=== PATIENT | female | born 2005 | race Two or more races ===

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

== ENCOUNTER 2025-01-16 14:52 | Outpatient (REF) | payer OTHER, SELFPAY ==
[2025-01-16 15:50] LABS: Cholesterol 217 mg/dL (<200); HDL Cholesterol 45 mg/dL (>40); LDL Cholesterol Calculated 153 mg/dL (<100); Triglycerides 95 mg/dL (<150)
--- OUTSIDE RECORDS SUMMARY | 2025-01-16 18:11 | XMS_ITS | Encounter Summary ---
Author Organization [facility] Address [address] [place] [address] Phone Care Team Providers Care Ranch Rider Name Role Phone Anita Rodriguez MD Primary Care Provider Encounter Details Date Type Department Care Team ([facility] st Contact Info) Description 02/27/2016 Documentation [facility] [place] Family Medicine [address] [place] [address] Family Medicine, Physician [address] [place], [place] [id number] Social History Tobacco Use Types Packs/Day Years Used Date Smoking Tobacco: Never Assessed Comments Unknown Sex and Gender Information Value Date Recorded Sex Assigned at Female 06/30/2020 1:52 PM EDT Legal Sex Female 5:13 PM EDT Gender Identity Female 06/30/2020 1:52 PM EDT Sexual Orientation Bisexual 04/19/2024 10 :40 AM EDT documented as of this encounter Plan of Treatment Not on file documented as of this encounter Visit Diagnoses Not on filedocumented in this encounter Care Teams Ranch Rider Relationship Specialty Start Date End Date Anita Rodriguez MD [address] [place] [id number] PCP - General Pediatrics 09/27/22 documented as of this encounter
--- OUTSIDE RECORDS SUMMARY | 2025-01-16 18:11 | XMS_ITS | Clinical Summary ---
Author Organization [facility] Address [address] [place] [address] Phone Care Team Providers Care Hog Pusher Name Role Phone Anita Rodriguez MD Primary Care Provider [phone] Allergies Active Allergy Reactions Criticality Noted Date Comments Food Itching 10/27/2022 [place] and plums Medications amLODIPine 10 MG tablet Take 10 mg by mouth daily. 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 Add Flonase. F/U 1 yr Moderate mixed hyperlipidemia not requiring stat in therapy 09/23/2021 Overview (07/25/2024): Has been seen by endo for this and for PCOS Labs 01/07/21 Chol - 234, Triglyceride - 97, HDL 49, LDL 166, Non HDL 185 10/27/2022 TC 176, HDL 47, non-HDL 129 05/25/2023 BP maintained on amlodipine. Elevated lipid levels (TC 219, LDL 165, TG 86, HDL 37). RTC 3 mo 11/06/2023 ECHO wnl. Rpt lipid elevated: TC 234, LDL 170, TG 105, HDL 43 07/24/2024 Cardiology - doing well on amlodipine 10 mg daily RTC 6 mo with rpt lipids Assessment & Plan (04/19/2024 10:44 AM EDT): 11/06/2023 ECHO wnl. Rpt lipid elevated: TC 234, LDL 170, TG 105, HDL 43 Repeat labs today with f/u with Cardiology on Monday Oral allergy syndrome 07/01/2021 Overview (04/11/2023): Gets itchy after eating peaches and plums and cherries. 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 Add Flonase. 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 Amlodipine was increased to 5 mg daily. Omron BP device requested for home. Dietary changes and 5 hours moderate exercise a week recommended. Recheck in 4 to 6 weeks 05/25/2023 BP maintained on amlodipine. Elevated lipid levels. Urine protein 1+ RTC 3 mo 11/06/2023 ECHO wnl. Rpt lipid elevated 11/22/2023 amlodipine increase to 10 mg/day and rpt lipid panel. F/u 03/11 canceled 07/24/2024 Cardiology - doing well on amlodipine 10 mg daily RTC 6 mo with rpt lipids Assessment & Plan (04/19/2024 10:25 AM EDT): 04/19/2024 Seen by Cardiology on 11/22/2023 for HTN and has follow up MondayApril 22. Going for repeat lipid panel, BUN, Cr, lytes today. Assessment & Plan (10/27/2022 1:52 PM EST): 10/27/2022 Seen by Cardiology on 11/09/21 for HTN and needs to follow up. (07/01/21 BUN,Cr,lytes wnl) Still needs a UA and lipids. Assessment & Plan (07/01/2021 5:46 PM EDT): High BP on initial check today and on recheck - 146/90 Wt 287 pounds Referred to cardio Assessment & Plan (06/30/2020 2:49 PM EDT): To follow up in 2-3 months for recheck. Discussed weight. Follow up with Endocrine as well PCOS (polycystic ovarian syndrome) 03/16/2018 Overview (04/08/2023): Followed by endo starting 03/2018 for PCOS (oligomenorrhea with hirsutism and elevated androgens). Was referred to nutrition. Ferritin and h/h normal 05/2019 On OCP = Seasonique 03/22/2023 Seen by Endocrine for follow up for PCOS, obesity, hyperlipidemia. Stopped OCPs 1 year ago. Menses Dec and January 2023. Prior to Dec 2022, no menses > 6 months. Normal Hgb A1C Oct 2022. Plan is to take Provera X 10 days if no menses for 3 months in a row. Follow up scheduled for 6 months. Assessment & Plan (10/27/2022 2:04 PM EST): 10/27/2022 BMI >99, PCOS dx 2018: last seen by Endocrine 02/27/2020. Saw Weight management in December 2019. referred back to Endo at last [facility], HgA1C 5.5 01/07/21. LMP 01/14/22. Not c/w OCPs. Needs to follow up. Assessment & Plan (07/01/2021 5:38 PM EDT): Followed by endocrine though has not seen them in a long time. Referred back to endocrine for help with OCP and to further discuss wt gain. Labs -Hgb A1C and metabolic panel ordered Assessment & Plan (05/31/2019 5:48 PM EDT): Has heavy menses that can last 5-8 days with 2-3 heavy days referred back to Endo for follow up for ? PCOS Assessment & Plan (03/16/2018 4:42 PM EDT): Menses started within this past year. Family not concerned. Will continue to follow. Obesity 04/20/2012 Overview (04/11/2023): Nutrition referral from Endo. 06/2021 - continues to gain weight. Pt is trying to be active and to eat better. Assessment & Plan (07/01/2021 1:35 PM EDT): Trying hard to lose weight and eat better. Pt has seen interrelated special education teacher Will check labs to look for Type 2 diabetes. Assessment & Plan (05/31/2019 3:36 PM EDT): Discussed increasing BMI and recommendation to get daily exercise and eat more fruits and veges. Assessment & Plan (03/16/2018 3:20 PM EDT): Labs ordered to r/o PCOS. Discussed healthy eating, increasing fruits and veges, whole grain foods, getting more exercise Resolved Problems Problem Noted Date Diagnosed Date Resolved Date Mood problem 09/24/2021 04/19/2024 Assessment & Plan (09/24/2021 9:20 PM EDT): At the end of this visit Catrachito requested that I write a letter to her landlord requesting that her do be considered an therapy animal. No previous hx of anxiety, or mood concerns I refused. Pt has no history of mentioning anxiety, she is not in therapy, dog is not specially trained as a therapy animal. To follow up for mood concerns if desired. Rosacea 09/23/2021 04/19/2024 Overview (09/23/2021): 07/10 - started on metronidazole cream Assessment & Plan (10/27/2022 1:54 PM EST): 10/27/2022 Rosacea: metronidazole cream - no change so referred to Derm on 09/23. Doing better on Azelaic acid. Has f/u scheduled for November. Assessment & Plan (09/24/2021 9:22 PM EDT): Feels the metronidazole has not helped. Referral done to dermatology. Encounters Date Type Department Care Team Description 12/12/2024 Telephone [facility] [place] [address] [place] [address] Anita Rodriguez MD letter from Last 3 Months Immunizations Immunization Administration Dates Next Due DTaP / Hep B / IPV 2005,2005, 005 DTaP 5 02/13/2009,08/04/2006 H1N1 11/24/2009,10/27/2009 HPV Vaccine 9 Valent 03/16/2018,02/16/2017 Hep A, ped/adol 08/15/2014,04/01/2011 Hib (HbOC) 2005,2005,2005 Hib (PRP-T) 04/07/2006 IPV 02/13/2009 Influenza Split 08/13/2012,09/20/2011,09/30/2010 Influenza, injectable, MDCK, preservative free, quadrivalent 10/03/2022 Influenza, injectable, quadrivalent 09/05/2016 Influenza, injectable, quadr ivalent, preservative free 09/23/2021,09/06/2020,07/30/2019,08/17,07/22/2015,08/15/2014 Influenza, injectable, trivalent 11/24/2009,07/21,2005 Influenza, intranasal, quadrivalent 08/01/2013 MMR 02/13/2009,01/06/2006 Meningococcal B Trumenba 07/11/2023,10/27/2022 Meningococcal Conj (Menactra) MCV4P 07/01/2021,0 02/16/2017 Pneumococcal Conjugate 04/07/2006,2004,2005,03/04 Tdap 02/16/2017 Varicella 02/13/2009,01/06/2006 Family History Medical History Relation Name Comments ADD / ADHD Brother Guru Asthma Father Jovani Hypertension Father Jovani Diabetes Maternal Grandmother Thyroid disease Maternal Grandmother Diabetes Mother Nelda Relation Name Status Comments Brother Guru Alive Brother: ADD/AD HD Father Jovani Alive Father: Asthma, High BP Maternal Grandfather Alive Materna l grandfather: Alive and well Maternal Grandmother Materna l grandmother: Diabetes mellitus Mother Nelda Alive Mother: Alive a nd well Paternal Grandfather Paterna l grandfather: Hypertension Paternal Grandmother Paterna l grandmother: Diabetes mellitus, Hypertension, Asthma Social History Tobacco Use Types Packs/Day Years Used Date Smoking Tobacco: Never Smokeless Tobacco: Never Tobacco Cessation:Counseling Given: Yes Alcohol Use Standard Drinks/Week Comments Never 0 (1 standard drink = 0.6 oz pur e alcohol) Hunger/Food Answer Date Recorded In the last 12 months, did y ou or your family ever eat less than you felt you should because there wasn't enough money for food? No 04/19/2024 Stable Housing Answer Date Recorded Are you worried that in the next 2 months you may not have stable housing? No 04/19/2024 Transportation Concerns Answer Date Rec orded In the last 12 months, have you or your family ever had to go without healthcare because you didn't have a way to get there? No 04/19/2024 Hazards in Home Answer Date Recorded Think about the place you li ve. Do you have problems with any of the following? Pests (mice or roaches), mold, no/not working smoke detectors, water leaks, no window guards. No 2023 Financing Utilities Answer Date Recorde d In the last 12 months, has t he electric, gas, oil, or water company threatened to shut off your services in your home? No 04/19/2024 Safety at Home Answer Date Recorded Are you or your family worried about feeling saf e in your home? No 04/19/2024 Outside Support Answer Date Recorded Do you feel that you need mo re support from other people or programs to help you care for yourself or your family? No 04/19/2024 Understanding Health Concerns Answer Da te Recorded Do you need help understandi ng your or your child's healthcare needs (diagnosis, medications, plan, etc.)? No 04/19/2024 Financing Health Concerns Answer Date R ecorded In the last 12 months, was t here a time when your child needed to see a doctor or get medications or supplies but could not because of cost? No 04/19/2024 Missing School or Work Answer Date Juan Diego rded Did you or your child miss s chool or work because of a health problem that could have been avoided? No 04/19/2024 Child Education Answer Date Recorded Do you have concerns about y our/your child's learning or behavior in school, preschool, or daycare? No 04/19/2024 Comments No Sex and Gender Information Value Date Recorded Sex Assigned at Female 06/30/2020 1:52 PM EDT Legal Sex Female 5:13 PM EDT Gender Identity Female 06/30/2020 1:52 PM EDT Sexual Orientation Bisexual 04/19/2024 10 :40 AM EDT Last Filed Vital Signs Vital Sign Reading Time Taken Comments Blood Pressure 129/77 07/20/2024 9:40 AM EDT Pulse 96 07/20/2024 9:40 AM EDT Temperature 36.7 ??C (98 ??F) 07/20/2024 9:40 AM EDT Respiratory Rate - - Oxygen Saturation 97% 02/23/2016 12:00 AM EDT Inhaled Oxygen Concentration - - Weight 132 kg (290 lb) 07/20/2024 9:40 AM EDT Height 165.7 cm (5' 5.25 ) 04/19/2024 10:07 AM E DT Body Mass Index 47.89 04/19/2024 10:07 AM EDT Plan of Treatment Health Maintenance Due Date Last Done Comments Influenza Vaccines (#1) 2024 10/03/20, 09/23/2021, 09/06/2020, Additional history exists COVID-19 Vaccine (2023-2 5 season) 2024 10/05/2022, 04/16/2021, 03/26/2021 Chlamydia and Gonorrhea Screening 11/20/2024 04/19/2024, 10/27/2022, 07/01/2021, Additional history exists DTaP,Tdap,and Td Vaccines (7 - Td or Tdap) 02/16/2027 02/16/2017, 02/13/2009, 08/04/2006, Additional history exists Hepatitis B Vaccines Completed 2005, 2005, 2005 HIB Vaccines Completed 04/07/2006, 06/20, 2005, Additional history exists Pneumococcal Vaccine Completed 04/07/2006, 2005, 2005, Additional history exists IPV Vaccines Completed 02/13/2009, 06/20, 2005, Additional history exists MMR Vaccines Completed 02/13/2009, 01/06/2006 Varicella Vaccines Completed 02/13/2009, 01/06/2006 Hepatitis A Vaccines Completed 08/15/2014, 04/01/20 11 HPV Vaccines Completed 03/16/2018, 02/16/2017 Meningococcal Vaccine Completed 07/01/2021, 017 Men B Vaccine Completed 07/11/2023, 10/27/2022 Procedures * Due to [place] [employer] law, this organization might not be sharing sensitive test results. Procedure Name Priority Date/Time Associated Diagnosis Comments CHLAMYDIA AND GONORRHEA, AMPLIFIED Routine 04/19/2024 10:16 AM EDT Special screening examination for chlamydial disease from Last 3 Months or Most Recently Relevant to Health Maintenance Results * Due to [place] [employer] law, this organization might not be sharing sensitive test results. * Chlamydia and Gonorrhoea, Amplified (04/19/2024 10:16 AM EDT) C trach [facility] Negative Negative [facility] N gonorrhoeae [facility] Negative Negative [facility] Urine (Urine) 04/19/2024 10: 16 AM EDT 04/19/2024 Comment:URINE Narrative [facility] - 04/26/2024 9:08 AM EDT Performed at: ??[address] [facility] [address], [address], [place], [place] ??[id number] Tenterer: Armen Marrero MD, Phone: ??[phone] us Anita Rodriguez MD LAB MICROBIOLOGY - GENERAL ORD ERABLES Final Result [facility] [address] [place] [address] from Last 3 Months or Most Recently Relevant to Health Maintenance Insurance [facility] NON PCC [facility] A[facility] Care Teams Hog Pusher Relationship Specialty Start Date End Date Anita Rodriguez MD [address] [place] [id number] PCP - General Pediatrics 09/27/22
--- OUTSIDE RECORDS SUMMARY | 2025-01-16 18:11 | XMS_ITS | Encounter Summary ---
Author Organization [facility] Address [address] [place] [phone] Phone Care Team Providers Care Area Director Of Home Health Sales Name Role Phone Anita Rodriguez MD Primary Care Provider [phone] Encounter Details Date Type Department Care Team ([facility] st Contact Info) Description 09/06/2016 Documentation [facility] [place] Family Medicine [address] [place] [address] Family Medicine, Physician [address] [place], [place] [id number] Social History Tobacco Use Types Packs/Day Years [...] on filedocumented in this encounter Care Teams Area Director Of Home Health Sales Relationship Specialty Start Date End Date Anita Rodriguez MD [address] [place] [phone] PCP - General Pediatrics 09/27/22 documented as of this encounter
--- OUTSIDE RECORDS SUMMARY | 2025-01-16 18:11 | XMS_ITS | Encounter Summary ---
Author Organization [facility] Address [address] [place] [address] Phone Care Team Providers Care Environmental Compliance Officer Name Role Phone Anita Rodriguez MD Primary Care Provider [phone] Encounter Details Date Type Department Care Team ([facility] st Contact Info) Description 09/21/2011 Documentation [facility] [place] Family Medicine [address] [place] [address] Family Medicine, Physician [address] [place], [place] [address] Social History Tobacco Use Types Packs/Day Years [...] on filedocumented in this encounter Care Teams Environmental Compliance Officer Relationship Specialty Start Date End Date Anita Rodriguez MD [address] [place] [id number] PCP - General Pediatrics 09/27/22 documented as of this encounter
--- OUTSIDE RECORDS SUMMARY | 2025-01-16 18:11 | XMS_ITS | Encounter Summary ---
Author Organization [facility] Address [address] [place] [address] Phone Care Team Providers Care Quantitative Associate Name Role Phone Anita Rodriguez MD Primary Care Provider [phone] Encounter Details Date Type Department Care Team ([facility] st Contact Info) Description 09/21/2011 Documentation [facility] [place] [address] [place] [address] Family Medicine, Physician [address] [place], [place] 193631 Social History Tobacco Use Types Packs/Day Years [...] on filedocumented in this encounter Care Teams Quantitative Associate Relationship Specialty Start Date End Date Anita Rodriguez MD [address] [place] [address] PCP - General Pediatrics 09/27/22 documented as of this encounter
--- OUTSIDE RECORDS SUMMARY | 2025-01-16 18:11 | XMS_ITS | Encounter Summary ---
Author Organization [facility] Address [address] [place] [address] 76[address] Phone Care Team Providers Care Sample Maker Name Role Phone Anita Rodriguez MD Primary Care Provider [phone] Encounter Details Date Type Department Care Team ([facility] st Contact Info) Description 04/23/2012 Documentation [facility] Family Medicine [address] [place] [address] Family Medicine, Physician [address] [place], [place] 673521 Social History Tobacco Use Types Packs/Day Years [...] on filedocumented in this encounter Care Teams Sample Maker Relationship Specialty Start Date End Date Anita Rodriguez MD [address] [place] [address] 20578 PCP - General Pediatrics 09/27/22 documented as of this encounter
--- OUTSIDE RECORDS SUMMARY | 2025-01-16 18:11 | XMS_ITS | Encounter Summary ---
Author Organization [facility] Address [address] [place] [address] Phone Care Team Providers Care Is Analyst Name Role Phone Anita Rodriguez MD Primary Care Provider [phone] Encounter Details Date Type Department Care Team ([facility] st Contact Info) Description 09/19/2012 Documentation [facility] Family Medicine [address] [place] [address] Family Medicine, Physician [address] [place], [place] 259881 Social History Tobacco Use Types Packs/Day Years [...] on filedocumented in this encounter Care Teams Is Analyst Relationship Specialty Start Date End Date Anita Rodriguez MD [address] [place] [address] 31947 PCP - General Pediatrics 09/27/22 documented as of this encounter
--- OUTSIDE RECORDS SUMMARY | 2025-01-16 18:11 | XMS_ITS | Encounter Summary ---
Author Organization [facility] Address [address] [place] [address] Phone Care Team Providers Care Budder Name Role Phone Anita Rodriguez MD Primary Care Provider [phone] Encounter Details Date Type Department Care Team ([facility] st Contact Info) Description 08/18/2014 Documentation [place] Family Medicine [address] [place] [address] Family Medicine, Physician [address] [place], [place] 534951 Social History Tobacco Use Types Packs/Day Years [...] on filedocumented in this encounter Care Teams Budder Relationship Specialty Start Date End Date Anita Rodriguez MD [address] [place] [address] PCP - General Pediatrics 09/27/22 documented as of this encounter
--- OUTSIDE RECORDS SUMMARY | 2025-01-16 18:11 | XMS_ITS | Encounter Summary ---
Author Organization [facility] Address [address] [place] [address] 225[address] Phone Care Team Providers Care Transonic Engineer Name Role Phone Anita Rodriguez MD Primary Care Provider Encounter Details Date Type Department Care Team ([facility] st Contact Info) Description 03/10/2017 Documentation [facility] Family Medicine [address] [place] [address] Family Medicine, Physician [address] [place], [place] 850911 Social History Tobacco Use Types Packs/Day Years [...] on filedocumented in this encounter Care Teams Transonic Engineer Relationship Specialty Start Date End Date Anita Rodriguez MD [address] [place] [address] 28652 PCP - General Pediatrics 09/27/22 documented as of this encounter
--- OUTSIDE RECORDS SUMMARY | 2025-01-16 18:11 | XMS_ITS | Encounter Summary ---
Author Organization [facility] Address [address] [place] [address] Phone Care Team Providers Care Car Body Mechanic Name Role Phone Anita Rodriguez MD Primary Care Provider [phone] Encounter Details Date Type Department Care Team ([facility] st Contact Info) Description 05/14/2012 Documentation [facility] [place] [address] [place] [address] Family Medicine, Physician [address] [place], [place] 832581 Social History Tobacco Use Types Packs/Day Years [...] on filedocumented in this encounter Care Teams Car Body Mechanic Relationship Specialty Start Date End Date Anita Rodriguez MD [address] [place] [address] 312[address] PCP - General Pediatrics 09/27/22 documented as of this encounter
--- OUTSIDE RECORDS SUMMARY | 2025-01-16 18:11 | XMS_ITS | Encounter Summary ---
Author Organization [facility] Address [address] [place] [address] 604[address] Phone Care Team Providers Care Pressroom Worker Name Role Phone Anita Rodriguez MD Primary Care Provider [phone] Encounter Details Date Type Department Care Team ([facility] st Contact Info) Description 09/21/2012 Documentation [facility] [place] Family Medicine [address] [place] [address] Family Medicine, Physician [address] [place], [place] 228931 Social History Tobacco Use Types Packs/Day Years [...] on filedocumented in this encounter Care Teams Pressroom Worker Relationship Specialty Start Date End Date Anita Rodriguez MD [address] [place] [address] 10548 PCP - General Pediatrics 09/27/22 documented as of this encounter
--- OUTSIDE RECORDS SUMMARY | 2025-01-16 18:11 | XMS_ITS | Encounter Summary ---
Author Organization [facility] Address [address] [place] [address] Phone Care Team Providers Care Agent Telegrapher Name Role Phone Anita Rodriguez MD Primary Care Provider [phone] Encounter Details Date Type Department Care Team ([facility] st Contact Info) Description 09/21/2011 Documentation [facility] [place] Family Medicine [address] [place] [address] Family Medicine, Physician [address] [place], [place] 957391 Social History Tobacco Use Types Packs/Day Years [...] on filedocumented in this encounter Care Teams Agent Telegrapher Relationship Specialty Start Date End Date Anita Rodriguez MD [address] [place] [address] 60499 PCP - General Pediatrics 09/27/22 documented as of this encounter
--- OUTSIDE RECORDS SUMMARY | 2025-01-16 18:11 | XMS_ITS | Encounter Summary ---
Author Organization [facility] Address [address] [place] [address] 240[address] Phone Care Team Providers Care Contact Lens Curve Grinder Name Role Phone Anita Rodriguez MD Primary Care Provider Encounter Details Date Type Department Care Team ([facility] st Contact Info) Description 07/23/2015 Documentation [facility] [place] Family Medicine [address] [place] [address] Family Medicine, Physician [address] [place], [place] 672461 Social History Tobacco Use Types Packs/Day Years [...] on filedocumented in this encounter Care Teams Contact Lens Curve Grinder Relationship Specialty Start Date End Date Anita Rodriguez MD [address] [place] [address] 05448 PCP - General Pediatrics 09/27/22 documented as of this encounter
--- OUTSIDE RECORDS SUMMARY | 2025-01-16 18:11 | XMS_ITS | Encounter Summary ---
Author Organization [facility] Address [address] [place] [address] 311[address] Phone Care Team Providers Care Exceptional Children Teacher Name Role Phone Anita Rodriguez MD Primary Care Provider [phone] Encounter Details Date Type Department Care Team ([facility] st Contact Info) Description 04/09/2010 Documentation [facility] Family Medicine [address] [place] [address] Family Medicine, Physician [address] [place], [place] [id number] Social History Tobacco Use Types Packs/Day Years [...] on filedocumented in this encounter Care Teams Exceptional Children Teacher Relationship Specialty Start Date End Date Anita Rodriguez MD [address] [place] [address] 10893 PCP - General Pediatrics 09/27/22 documented as of this encounter
--- OUTSIDE RECORDS SUMMARY | 2025-01-16 18:11 | XMS_ITS | Encounter Summary ---
Author Organization [facility] Address [address] [place] [address] Phone Care Team Providers Care Right Of Way Appraiser Name Role Phone Anita Rodriguez MD Primary Care Provider [phone] Encounter Details Date Type Department Care Team ([facility] st Contact Info) Description 04/23/2012 Documentation [facility] [place] [address] [place] [address] Family Medicine, Physician [address] [place], [place] 975601 Social History Tobacco Use Types Packs/Day Years [...] on filedocumented in this encounter Care Teams Right Of Way Appraiser Relationship Specialty Start Date End Date Anita Rodriguez MD [address] [place] [address] 08679 PCP - General Pediatrics 09/27/22 documented as of this encounter
--- OUTSIDE RECORDS SUMMARY | 2025-01-16 18:11 | XMS_ITS | Encounter Summary ---
Author Organization [facility] Address [address] [place] [address] Phone Care Team Providers Care Live Truck Operator Name Role Phone Anita Rodriguez MD Primary Care Provider [phone] Encounter Details Date Type Department Care Team ([facility] st Contact Info) Description 08/19/2014 Documentation [facility] Family Medicine [address] [place] [address] Family Medicine, Physician [address] [place], [place] 263691 Social History Tobacco Use Types Packs/Day Years [...] on filedocumented in this encounter Care Teams Live Truck Operator Relationship Specialty Start Date End Date Anita Rodriguez MD [address] [place] [address] 21343 PCP - General Pediatrics 09/27/22 documented as of this encounter
--- OUTSIDE RECORDS SUMMARY | 2025-01-16 18:11 | XMS_ITS | Encounter Summary ---
Author Organization [facility] Address [address] [place] [address] Phone Care Team Providers Care Sales Promotion Director Name Role Phone Anita Rodriguez MD Primary Care Provider [phone] Encounter Details Date Type Department Care Team ([facility] Contact Info) Description 07/06/2017 Conversion Encounter [place] [facility] [address] [place] [address] Social History Tobacco Use Types Packs/Day Years [...] on filedocumented in this encounter Care Teams Sales Promotion Director Relationship Specialty Start Date End Date Anita Rodriguez MD [address] [place] [address] PCP - General Pediatrics 09/27/22 documented as of this encounter
--- OUTSIDE RECORDS SUMMARY | 2025-01-16 18:11 | XMS_ITS | Encounter Summary ---
Author Organization [facility] Address [address] [place] [address] 20643 Phone Care Team Providers Care Manager Property Name Role Phone Anita Rodriguez MD Primary Care Provider [phone] Encounter Details Date Type Department Care Team ([facility] st Contact Info) Description 02/16/2017 Documentation [facility] [place] Family Medicine [address] [place] [address] Family Medicine, Physician [address] [place], [place] 189321 Social History Tobacco Use Types Packs/Day Years [...] on filedocumented in this encounter Care Teams Manager Property Relationship Specialty Start Date End Date Anita Rodriguez MD [address] [place] [address] 73285 PCP - General Pediatrics 09/27/22 documented as of this encounter
--- OUTSIDE RECORDS SUMMARY | 2025-01-16 18:11 | XMS_ITS | Encounter Summary ---
Author Organization [facility] Address [address] [place] [address] 51686 Phone Care Team Providers Care Plan Rep Name Role Phone Anita Rodriguez MD Primary Care Provider [phone] Encounter Details Date Type Department Care Team ([facility] st Contact Info) Description 09/14/2015 Documentation [facility] [place] Family Medicine [address] [place] [address] Family Medicine, Physician [address] [place], [place] 153421 Social History Tobacco Use Types Packs/Day Years [...] on filedocumented in this encounter Care Teams Plan Rep Relationship Specialty Start Date End Date Anita Rodriguez MD [address] [place] [address] 13711 PCP - General Pediatrics 09/27/22 documented as of this encounter
--- OUTSIDE RECORDS SUMMARY | 2025-01-16 18:12 | XMS_ITS | Encounter Summary ---
Author Organization [facility] Address [address] [place] [address] Phone Care Team Providers Care Courtesy Bus Driver Name Role Phone Anita Rodriguez MD Primary Care Provider [phone] Encounter Details Date Type Department Care Team ([facility] st Contact Info) Description 08/14/2012 Documentation [facility] [address] [place] [address] Family Medicine, Physician [address] [place], [place] 970701 Social History Tobacco Use Types Packs/Day Years [...] on filedocumented in this encounter Care Teams Courtesy Bus Driver Relationship Specialty Start Date End Date Anita Rodriguez MD [address] [place] [address] 33805 PCP - General Pediatrics 09/27/22 documented as of this encounter
--- OUTSIDE RECORDS SUMMARY | 2025-01-16 18:12 | XMS_ITS | Encounter Summary ---
Author Organization [facility] Address [address] [place] [address] Phone Care Team Providers Care Air Press Operator Name Role Phone Anita Rodriguez MD Primary Care Provider [phone] Encounter Details Date Type Department Care Team ([facility] st Contact Info) Description 08/02/2013 Documentation [facility] [place] Family Medicine [address] [place] [address] Family Medicine, Physician [address] [place], [place] 718791 Social History Tobacco Use Types Packs/Day Years [...] on filedocumented in this encounter Care Teams Air Press Operator Relationship Specialty Start Date End Date Anita Rodriguez MD [address] [place] [address] 29089 PCP - General Pediatrics 09/27/22 documented as of this encounter
--- OUTSIDE RECORDS SUMMARY | 2025-01-16 18:12 | XMS_ITS | Encounter Summary ---
Author Organization [facility] Address [address] [place] [address]365 Phone Care Team Providers Care Tractor Trailer Technician Name Role Phone Anita Rodriguez MD Primary Care Provider [phone] Encounter Details Date Type Department Care Team ([facility] st Contact Info) Description 08/14/2012 Documentation [facility] Family Medicine [address] [place] [address] Family Medicine, Physician [address] [place], [place] 744461 Social History Tobacco Use Types Packs/Day Years [...] on filedocumented in this encounter Care Teams Tractor Trailer Technician Relationship Specialty Start Date End Date Anita Rodriguez MD [address] [place] [address] 12844 PCP - General Pediatrics 09/27/22 documented as of this encounter
== END 2025-01-16 14:53 | disposition home or self-care (01) ==
LOC: HO.LAB 14:52
PROVIDERS: PCP Pediatrics Adolescent Medicine; Visit Provider Pediatrics
DX: E78.00 Pure hypercholesterolemia, unspecified (principal)
CPT/HCPCS: 36415; 80061

== ENCOUNTER 2025-07-03 07:15 | Outpatient (REF) | payer OTHER, SELFPAY ==
[2025-07-03 10:21] LABS: Appearance Urine Cloudy; Glucose Urine UA Negative (Negative); PH 6.5 (5.0-9.0); Specific Gravity - Urine 1.020 (1.005-1.025); UMIC TRIGGER UACC YES
[2025-07-03 10:27] LABS: UACC Culture Trigger YES
== END 2025-07-03 07:16 | disposition home or self-care (01) ==
LOC: HO.LAB 07:15
PROVIDERS: PCP Pediatrics Adolescent Medicine; Visit Provider Nurse Practitioner Family
DX: N30.90 Cystitis, unspecified without hematuria (principal); Z13.89 Encounter for screening for other disorder
CPT/HCPCS: 81001; 81003; 87086; 99202

== ENCOUNTER 2025-07-03 07:15 | Outpatient (AMB) | payer OTHER, SELFPAY ==
--- OUTSIDE RECORDS SUMMARY | 2025-07-03 07:16 | XMS_ITS | Clinical Summary ---
Author Organization [facility] Address [address] [place] [address] 9[address]26 Phone Care Team Providers Care Superintendent Custodian Janitor Name Role Phone Anita Rodriguez MD Primary Care Provider Allergies Active Allergy Reactions Criticality Noted Date Comments Other Itching 10/27/2022 [place] and plums Medications amLODIPine (NORVASC) 10 MG tabletIndication s:Hypertension, unspecified type Take 1 tablet (10 mg total) by mouth daily. 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 Add Flonase. F/U 1 yr Moderate mixed hyperlipidemia not requiring stat in therapy 09/23/2021 06/25/2023 Overview (06/25/2023): Has been seen by mary jo for this and for PCOS Labs 01/07/21 Chol - 234, Triglyceride - 97, HDL 49, LDL 166, Non HDL 185 Rosacea 09/23/2021 06/25/2023 Overview (06/25/2023): 07/10 - started on metronidazole cream Last Assessment & Plan: 10/27/2022 Rosacea: metronidazole cream - no change so referred to Derm on 09/23. Doing better on Azelaic acid. Has f/u scheduled for November. PCOS (polycystic ovarian syndrome) 03/16/2018 06/25/2023 Overview (06/25/2023): Followed by endo starting 03/2018 for PCOS [...] row. Follow up scheduled for 6 months. Last Assessment & Plan: 10/27/2022 BMI >99, PCOS dx 2017: last seen by Endocrine 02/27/2020. Saw Weight management in December 2019. referred back to Endo at last WCC, HgA1C 5.5 01/07/21. LMP 01/14/22. Not c/w OCPs. Needs to follow up. Obesity 04/20/2012 06/25/2023 Overview (06/25/2023): Nutrition referral from Endo. 06/2021 - continues to gain weight. Pt is trying to be active and to eat better. Last Assessment & Plan: Trying hard to lose weight and eat better. Pt has seen chief engineer production Will check labs to look for Type 2 diabetes. Family History Medical History Relation Comments Hypertension Father Diabetes Maternal Grandmother Diabetes Mother Hyperlipidemia Mother Early CAD Neg Hx Relation Status Comments Father Maternal Grandmother Mother Social History Tobacco Use Types Packs/Day Years Used Date Smoking Tobacco: Never Assessed Tobacco Cessation:Counseling Given: Not Answered Education Answer Date Recorded Are you interested in more education? Not on amanda e 03/17/2023 Are you concerned about learning? Not on file 03/17/2023 No 03/17/2023 No 03/17/2023 Digital Access Answer Date Recorded No 04/18/2023 No 04/18/2023 Reliable internet access at home? Not on file 04/18/2023 Device with a working camera? Not on file Comments Unknown Sex and Gender Information Value Date Recorded Sex Assigned at Not on file Legal Sex Female 6:49 PM EDT Gender Identity Not on file Sexual Orientation Not on file Last Filed Vital Signs Vital Sign Reading Time Taken Comments Blood Pressure 138/91 01/21/2025 11:53 AM EST Pulse 61 01/21/2025 11:51 AM EST Temperature - - Respiratory Rate - - Oxygen Saturation 98% 01/21/2025 11: 51 AM EST Inhaled Oxygen Concentration - - Weight 128.6 kg (283 lb 9.6 oz) 025 11:51 AM EST Height 165.5 cm (5' 5.16 ) 01/21/2025 1 1:51 AM EST Body Mass Index 46.97 01/21/2025 11:51 AM EST Plan of Treatment Upcoming Encounters Date Type Department Care Team (Late st Contact Info) Description 07/29/2025 3:00 PM EDT Office Visit [facility] at [address] [address] Pb Calhoun MD [address] [place] [address] [email or web address] Health Maintenance Due Date Last Done Comments DEVELOPMENTAL/BEHAVIORAL SCREENING (PHQ, PSC, or SWYC) 2008 DEPRESSION SCREENING 2017 COMBINED DTaP,Tdap,Td (2 - Td or Tdap) 03/16/2017 02/16/2017 SMOKING Hx and SMOKELESS TOBACCO SCREENING 2018 HPV VACCINES (1 - 3-dose series) 2020 CHLAMYDIA SCREENING 2021 MENINGOCOCCAL VACCINES (B) (1 of 2 - Standard) 2021 HEPATITIS C SCREENING 2023 HIV ONE-TIME SCREENING (18-65 YEARS) 2023 COVID-19 VACCINE ( - 2023- season) 2024 MMR VACCINES Completed 02/13/2009, 01/06/2006 VARICELLA VACCINES Completed 02/13/2009, 01/06/2006 ADOLESCENT UNIVERSAL LIPID SCREENING Completed 01/16/2025, 07/18/2024, 10/10/2023, Additional history exists HEPATITIS A VACCINES Aged Out No long er eligible based on patient's age to complete this topic HIB VACCINES Aged Out No longer eligi ble based on patient's age to complete this topic MENINGOCOCCAL VACCINES (ACWY) Aged Out No longer eligible based on patient's age to complete this topic PNEUMOCOCCAL VACCINES (0-49 years) Aged Out No longer eligible based on patient's age to complete this topic Medical Devices Not on file Procedures Procedure Name Priority Date/Time Associated Diagnosis Comments EXTERNALLY RESULTED CHEMISTRY Routine 01/16/2025 3:00 PM EST from Last 3 Months or Most Recently Relevant to Health Maintenance Results * (ABNORMAL) EXTERNALLY RESULTED CHEMISTRY (01/16/2025 3:00 PM EST) Sodium - External Potassium - External Chloride - External CO2 - External BUN - External Creatinine, serum - External BUN/Creatinine - External eGFR - External Glucose - External Calcium - External Phosphorus - External Magnesium - External Albumin - External Bilirubin, total - External Bilirubin, direct - External Bilirubin (conjugated) - External Bilirubin, indirect - External Protein - External Alkaline Phosphatase - External AST - External ALT - External Amylase - External Lipase (u/L) - External Cholesterol, total - External 217(A) <=200 mg/dL Comment:Done At [facility] LDL - External 153(A) <=100 mg/dL Comment:Done At [facility] Triglycerides - External 95 <=150 mg/dL Comment:Done At [facility] HDL - External 45 >=40 mg/dL Comment:Done At [facility] TIBC - External Iron - External Ferritin - External Folate - External Vitamin B12 - External CK - External Cotinine - External C-peptide (ng/mL) - External C-peptide (pmol/L) - External HCG, qualitative - External HCG, total - External NT-proBNP - External PTH - External TSH - External T3 - External Total T4 - External Free T4 - External Vitamin D 25(OH) - External AFP (Tumor Marker) - External Uric Acid - External PSA - External GGT - External Lactate, dehydrogenase - External Ammonia - External Vitamin A - External Alk phos: Intestinal Isoenzymes - External Alk phos: Bone Isoenzymes - External Alk phos: Liver Isoenzymes - External Alk phos: Placental Isoenzymes - External Alk phos: Macrohepatic Isoenzymes - External Cystatin C - External 01/16/2025 3:00 PM EST [facility] Provider LAB BLOOD ORDERABLES Sally l Result from Last 3 Months or Most Recently Relevant to Health Maintenance Insurance [employer]CO [employer] [facility] [place] [place] [address] [place] [address] CHILDRENS [employer] [facility] [employer] Care Teams Superintendent Custodian Janitor Relationship Specialty Start Date End Date Anita Rodriguez MD [address] [place] [address] [place] [address] PCP - General Adolescent Medicine 10/27/22 Additional Source Comments The information contained in this document represents components of the legal health record. It is not the complete legal health record.[facility]
--- NOTE | 2025-07-03 07:31 | AM.OFFWIN_ITS ---
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 Pt reports Urinary Urgency, frequency and hematuria. Denies fevers, chills, nausea or vomiting. Pt sexually active with 1 male partner - condoms. No concerns for STIs. LMP: 06/17/25 - no control. Denies vaginal symptoms. REPLACED BY [facility] Medical History (Updated 07/03/25 @ 07:38 by Karyna Galindo NP) Cystitis No acute medical problems Surgical History No history of previous surgery Review of Systems Const All systems reviewed & are unremarkable except as noted in HPI and below Physical Exam Const General: no acute distress Nutritional Appearance: obese Orientation/consciousness: patient oriented x3 Resp Effort & Inspection: normal respiratory effort Auscultation: clear to auscultation bilaterally Cardio Heart sounds: S1 normal heart sound present and S2 normal heart sound present General: Yes no CVA tenderness Back/Spine/Pelvis Back: no CVA tenderness Neuro General: patient oriented x3 Psych Speech and movement: Normal speech and movement present Results AMB Urinalysis, Automated UA Leukoctes 500 Delphine/uL Last Edit by Verena Burgos MA on 07/03/25 07:47 UA Nitrite Negative Last Edit by Verena Burgos MA on 07/03/25 07:47 UA Urobilinogen 0.2 mg/dL Last Edit by Verena Burgos MA on 07/03/25 07:47 UA Protein 30 mg/dL Last Edit by Verena Burgos MA on 07/03/25 07:47 UA pH 6.0 Last Edit by Verena Burgos MA on 07/03/25 07:47 UA Blood 200 Itz/uL Last Edit by Verena Burgos MA on 07/03/25 07:47 UA Specific Sabattus 1.020 Last Edit by Verena Burgos MA on 07/03/25 07:47 UA Ketone Negative Last Edit by Verena Burgos MA on 07/03/25 07:47 UA Bilirubin 0 mg/dL Last Edit by Verena Burgos MA on 07/03/25 07:47 UA Glucose 0 mg/dL Last Edit by Verena Burgos MA on 07/03/25 07:47 Assessment & Plan Assessment & Plan (1) Cystitis: Code(s): N30.90 - Cystitis, unspecified without hematuria Plan: Urinalysis positive for DELPHINE Sent Abx for 7 days Ordered UA and Culture. Orders: Orders AMB Urinalysis Automated Today Z13.9 - Encounter for screening, unspecified UA CC w/rflx Micro + Cult Today N30.90 - Cystitis, unspecified without hematuria Medications: New cefuroxime axetil 500 mg PO BID 14 tabs 0RF 7 days N30.90 - Cystitis, unspecified without hematuria Discontinued ibuprofen Discontinued Reason: Patient Completed Course 600 mg PO Q8H PRN 15 tabs 0RF pain Coding Level of Care Code New Pt Level 4 (70372) Diagnoses Cystitis N30.90 Time Spent (min) 20
[2025-07-03 07:32] VITALS: BP 152/100; PULSE 81; TEMP 36.3
== END 2025-07-03 07:48 | disposition home or self-care (01) ==
PROVIDERS: PCP Pediatrics Adolescent Medicine; Visit Provider Nurse Practitioner Family
DX: Z13.9 Encounter for screening, unspecified (principal); N30.90 Cystitis, unspecified without hematuria

== ENCOUNTER 2025-09-16 08:24 | Outpatient (REF) | payer OTHER, SELFPAY ==
[2025-09-16 10:00] LABS: MANUAL DIFF FLAG NO
[2025-09-16 10:18] LABS: Hematocrit 40.7 % (37.0-47.0); Hemoglobin 13.8 g/dl (12.0-16.0); Imm Gran Abs Auto 0.02 X10*3/uL (0.00-0.03); Imm Gran Pct Auto 0.3 % (0.0-0.4); Lymphocytes Absolute Auto 1.9 X10*3/uL (1.2-4.9); Mean Corpuscular HGB Conc 33.9 g/dl (31.0-35.0); Mean Corpuscular Hemoglobin 30.0 pg (27.0-33.0); Mean Corpuscular Volume 88.5 fL (80.0-98.0); NRBC Abs Auto 0.000 X10*3/uL (0.0-0.012); NRBC Pct Auto 0.0 /100WBC (0.0-0.2); Platelet Count 287 X10*3/uL (160-400); Red Blood Count 4.60 X10*6/uL (4.20-5.50); White Blood Count 7.9 X10*3/uL (4.8-10.8)
[2025-09-16 10:52] LABS: Alanine Aminotransferase 17 U/L (0-31); Albumin Level 4.6 g/dL (3.5-5.0); Alkaline Phosphatase 96 U/L (39-117); Anion Gap 12 (12-20); Aspartate Amino Transferase 27 U/L (5-31); Blood Urea Nitrogen 9 mg/dL (9-16); Calcium 9.5 mg/dL (8.4-10.2); Carbon Dioxide 28 mmol/L (22-29); Chloride 105 mmol/L (96-108); Cholesterol 186 mg/dL (<200); Estimated Glomerular Filt Rate > 60; HDL Cholesterol 37 mg/dL (>40); Potassium 3.9 mmol/L (3.3-5.1); Sodium 141 mmol/L (135-145); Total Protein 7.9 g/dL (6.5-8.0); Triglycerides 101 mg/dL (<150)
[2025-09-16 11:12] LABS: Reflex LDLD? No
--- OUTSIDE RECORDS SUMMARY | 2025-09-16 11:18 | XMS_ITS | Encounter Summary ---
Author Organization [facility] Address [address] [place] [address] Phone Care Team Providers Care Rubber Flap Tuber Machine Operator Name Role Phone Anita Rodriguez MD Primary Care Provider [phone] Encounter Details Date Type Department Care Team ([facility] st Contact Info) Description 02/27/2016 Documentation [facility] [place] [facility] [place] [address] [place], [place] [id number] Family Medicine, Physician [address] [place], [place] 837121 Social History Tobacco Use Types Packs/Day Years [...] on filedocumented in this encounter Care Teams Rubber Flap Tuber Machine Operator Relationship Specialty Start Date End Date Anita Rodriguez MD [address] [place] [address] PCP - General Pediatrics 09/27/22 documented as of this encounter
--- OUTSIDE RECORDS SUMMARY | 2025-09-16 11:18 | XMS_ITS | Encounter Summary ---
Author Organization [facility] Address [address] [place] [address] Phone Care Team Providers Care Jeep Mechanic Name Role Phone Anita Rodriguez MD Primary Care Provider [phone] Encounter Details Date Type Department Care Team ([facility] st Contact Info) Description 09/14/2015 Documentation [facility] [place] [address] [place], [place] [id number] Family Medicine, Physician [address] [place], [place] 932751 Social History Tobacco Use Types Packs/Day Years [...] on filedocumented in this encounter Care Teams Jeep Mechanic Relationship Specialty Start Date End Date Anita Rodriguez MD [address] [place] [address] PCP - General Pediatrics 09/27/22 documented as of this encounter
--- OUTSIDE RECORDS SUMMARY | 2025-09-16 11:18 | XMS_ITS | Encounter Summary ---
Author Organization [facility] Address [address] [place] [address] Phone Care Team Providers Care Icu Rn Name Role Phone Anita Rodriguez MD Primary Care Provider [phone] Encounter Details Date Type Department Care Team ([facility] st Contact Info) Description 04/09/2010 Documentation [facility] [place] [address] [place] [address] Family Medicine, Physician [address] [place], [place] 438541 Social History Tobacco Use Types Packs/Day Years [...] on filedocumented in this encounter Care Teams Icu Rn Relationship Specialty Start Date End Date Anita Rodriguez MD [address] [place] [address] PCP - General Pediatrics 09/27/22 documented as of this encounter
--- OUTSIDE RECORDS SUMMARY | 2025-09-16 11:18 | XMS_ITS | Encounter Summary ---
Author Organization [facility] Address [address] [place] [address] Phone Care Team Providers Care Ship Laborer Name Role Phone Anita Rodriguez MD Primary Care Provider Encounter Details Date Type Department Care Team ([facility] st Contact Info) Description 07/23/2015 Documentation [facility] [place] Medicine [address] [place], [place] [phone] Family Medicine, Physician [address] [place], [place] 388051 Social History Tobacco Use Types Packs/Day Years [...] on filedocumented in this encounter Care Teams Ship Laborer Relationship Specialty Start Date End Date Anita Rodriguez MD [address] [place] [address] PCP - General Pediatrics 09/27/22 documented as of this encounter
--- OUTSIDE RECORDS SUMMARY | 2025-09-16 11:19 | XMS_ITS | Encounter Summary ---
Author Organization [facility] Address [address] [place] [address] Phone Care Team Providers Care Warehouse Insulation Worker Name Role Phone Anita Rodriguez MD Primary Care Provider Encounter Details Date Type Department Care Team ([facility] st Contact Info) Description 09/21/2011 [place] [facility] [place] [address] [place] [address] Family Medicine, Physician [address] [place], [place] 949791 Social History Tobacco Use Types Packs/Day Years [...] on filedocumented in this encounter Care Teams Warehouse Insulation Worker Relationship Specialty Start Date End Date Anita Rodriguez MD [address] [place] [address] PCP - General Pediatrics 09/27/22 documented as of this encounter
--- OUTSIDE RECORDS SUMMARY | 2025-09-16 11:19 | XMS_ITS | Encounter Summary ---
Author Organization [facility] Address [address] [place] [address] Phone Care Team Providers Care Second Time Worker Name Role Phone Anita Rodriguez MD Primary Care Provider [phone] Encounter Details Date Type Department Care Team ([facility] st Contact Info) Description 04/23/2012 Documentation [facility] [place] [address] [place] [address] Family Medicine, Physician [address] [place], [place] 704021 Social History Tobacco Use Types Packs/Day Years [...] on filedocumented in this encounter Care Teams Second Time Worker Relationship Specialty Start Date End Date Anita Rodriguez MD [address] [place] [address] PCP - General Pediatrics 09/27/22 documented as of this encounter
--- OUTSIDE RECORDS SUMMARY | 2025-09-16 11:19 | XMS_ITS | Encounter Summary ---
Author Organization [facility] Address [address] [place] [address] Phone Care Team Providers Care Bilingual Patient Support Caseworker Name Role Phone Anita Rodriguez MD Primary Care Provider [phone] Encounter Details Date Type Department Care Team ([facility] st Contact Info) Description 04/23/2012 Documentation [facility] [place] [address] [place] [address] Family Medicine, Physician [address] [place], [place] 381281 Social History Tobacco Use Types Packs/Day Years [...] on filedocumented in this encounter Care Teams Bilingual Patient Support Caseworker Relationship Specialty Start Date End Date Anita Rodriguez MD [address] [place] [address] PCP - General Pediatrics 09/27/22 documented as of this encounter
--- OUTSIDE RECORDS SUMMARY | 2025-09-16 11:19 | XMS_ITS | Encounter Summary ---
Author Organization [facility] Address [address] [place] [address] Phone Care Team Providers Care Manager Group Home Name Role Phone Anita Rodriguez MD Primary Care Provider [phone] Encounter Details Date Type Department Care Team ([facility] st Contact Info) Description 03/10/2017 Documentation [facility] [place] [address] [place], [place] [phone] Family Medicine, Physician [address] [place], [place] [address]51 Social History Tobacco Use Types Packs/Day Years [...] filedocumented in this encounter Care Teams Manager Group Home Relationship Specialty Start Date End Date Anita Rodriguez MD [address] [place] [address]83 PCP - General Pediatrics 09/27/22 documented as of this encounter
--- OUTSIDE RECORDS SUMMARY | 2025-09-16 11:19 | XMS_ITS | Encounter Summary ---
Author Organization [facility] Address [address] [place] [address] Phone Care Team Providers Care Pesticide Use Medical Coordinator Name Role Phone Anita Rodriguez MD Primary Care Provider [phone] Encounter Details Date Type Department Care Team ([facility] st Contact Info) Description 08/14/2012 Documentation [facility] [place] [address] [place], [place] [phone] Family Medicine, Physician [address] [place], [place] 694711 Social History Tobacco Use Types Packs/Day Years [...] on filedocumented in this encounter Care Teams Pesticide Use Medical Coordinator Relationship Specialty Start Date End Date Anita Rodriguez MD [address] [place] [address] PCP - General Pediatrics 09/27/22 documented as of this encounter
--- OUTSIDE RECORDS SUMMARY | 2025-09-16 11:19 | XMS_ITS | Encounter Summary ---
Author Organization [facility] Address [address] [place] [address] Phone Care Team Providers Care Rn First Assist Name Role Phone Anita Rodriguez MD Primary Care Provider [phone] Encounter Details Date Type Department Care Team ([facility] st Contact Info) Description 05/14/2012 Documentation [facility] [place] [address] [place], [place] [phone] Family Medicine, Physician [address] [place], [place] 012861 Social History Tobacco Use Types Packs/Day Years [...] on filedocumented in this encounter Care Teams Rn First Assist Relationship Specialty Start Date End Date Anita Rodriguez MD [address] [place] [address] PCP - General Pediatrics 09/27/22 documented as of this encounter
--- OUTSIDE RECORDS SUMMARY | 2025-09-16 11:19 | XMS_ITS | Encounter Summary ---
Author Organization [facility] Address [address] [place] [address] Phone Care Team Providers Care Western Tack Assembly Line Worker Name Role Phone Anita Rodriguez MD Primary Care Provider [phone] Encounter Details Date Type Department Care Team ([facility] Contact Info) Description 07/06/2017 Conversion Encounter [facility] [address] [place] [address] Social History Tobacco Use Types Packs/Day Years [...] on filedocumented in this encounter Care Teams Western Tack Assembly Line Worker Relationship Specialty Start Date End Date Anita Rodriguez MD [address] [place] [address] PCP - General Pediatrics 09/27/22 documented as of this encounter
--- OUTSIDE RECORDS SUMMARY | 2025-09-16 11:19 | XMS_ITS | Encounter Summary ---
Author Organization [facility] Address [address] [place] [address] Phone Care Team Providers Care Pick Out Hand Name Role Phone Anita Rodriguez MD Primary Care Provider [phone] Encounter Details Date Type Department Care Team ([facility] st Contact Info) Description 08/02/2013 Documentation [facility] [place] [address] [place] [address] Family Medicine, Physician [address] [place], [place] 947791 Social History Tobacco Use Types Packs/Day Years [...] on filedocumented in this encounter Care Teams Pick Out Hand Relationship Specialty Start Date End Date Anita Rodriguez MD [address] [place] [address] PCP - General Pediatrics 09/27/22 documented as of this encounter
--- OUTSIDE RECORDS SUMMARY | 2025-09-16 11:19 | XMS_ITS | Encounter Summary ---
Author Organization [facility] Address [address] [place] [address] Phone Care Team Providers Care Assembler Installer Structures Name Role Phone Anita Rodriguez MD Primary Care Provider [phone] Encounter Details Date Type Department Care Team ([facility] st Contact Info) Description 09/21/2012 Documentation [facility] [place] Medicine [address] [place] [address] Family Medicine, Physician [address] [place], [place] 311751 Social History Tobacco Use Types Packs/Day Years [...] on filedocumented in this encounter Care Teams Assembler Installer Structures Relationship Specialty Start Date End Date Anita Rodriguez MD [address] [place] [address] 18[address] PCP - General Pediatrics 09/27/22 documented as of this encounter
--- OUTSIDE RECORDS SUMMARY | 2025-09-16 11:19 | XMS_ITS | Encounter Summary ---
Author Organization [facility] Address [address] [place] [address] Phone Care Team Providers Care Word Processing Specialist Name Role Phone Anita Rodriguez MD Primary Care Provider Encounter Details Date Type Department Care Team ([facility] st Contact Info) Description 09/06/2016 [place] [facility] [place] [address] [place], [place] [phone] Family Medicine, Physician [address] [place], [place] 9225[address] Social History Tobacco Use Types Packs/Day Years [...] on filedocumented in this encounter Care Teams Word Processing Specialist Relationship Specialty Start Date End Date Anita Rodriguez MD [address] [place] [address] PCP - General Pediatrics 09/27/22 documented as of this encounter
--- OUTSIDE RECORDS SUMMARY | 2025-09-16 11:19 | XMS_ITS | Encounter Summary ---
Author Organization [facility] Address [address] [place] [address] Phone Care Team Providers Care Inseam Leveler Name Role Phone Anita Rodriguez MD Primary Care Provider [phone] Encounter Details Date Type Department Care Team ([facility] st Contact Info) Description 09/21/2011 [place] [facility] [place] [address] [place] [address] Family Medicine, Physician [address] [place], [place] 988601 Social History Tobacco Use Types Packs/Day Years [...] on filedocumented in this encounter Care Teams Inseam Leveler Relationship Specialty Start Date End Date Anita Rodriguez MD [address] [place] [address] 85054 PCP - General Pediatrics 09/27/22 documented as of this encounter
--- OUTSIDE RECORDS SUMMARY | 2025-09-16 11:19 | XMS_ITS | Encounter Summary ---
Author Organization [facility] Address [address] [place] [address] Phone Care Team Providers Care Course Instructor Name Role Phone Anita Rodriguez MD Primary Care Provider [phone] Encounter Details Date Type Department Care Team ([facility] st Contact Info) Description 09/21/2011 Documentation [facility] [place] Medicine [address] [place] [address] Family Medicine, Physician [address] [place], [place] 083351 Social History Tobacco Use Types Packs/Day Years [...] on filedocumented in this encounter Care Teams Course Instructor Relationship Specialty Start Date End Date Anita Rodriguez MD [address] [place] [address]756 PCP - General Pediatrics 09/27/22 documented as of this encounter
--- OUTSIDE RECORDS SUMMARY | 2025-09-16 11:19 | XMS_ITS | Clinical Summary ---
Author Organization [facility] Address [address] [place] [address] Phone Care Team Providers Care Agricultural Research Technologist Name Role Phone Anita Rodriguez MD Primary Care Provider [phone] Allergies Active Allergy Reactions Criticality Noted Date Comments Food Itching 10/27/2022 Bourbon and plums Medications amLODIPine 10 MG tablet Take 10 mg by mouth daily. 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 Add Flonase. F/U 1 yr Moderate mixed hyperlipidemia not requiring stat in therapy 09/23/2021 Overview (07/25/2024): Has been seen by mary jo for [...] mo with rpt lipids Assessment & Plan (04/22/2025 2:15 PM EDT): Followed by Cardiology (Dr Calhoun) for HTN and elevated lipids. Lost weight with improved diet and regular exercise. Last seen by Dr Calhoun 07/24/2024 with follow up scheduled for 07/29. Has been off amlodipine for a month. Last fasting lipid panel on 01/16/2025 TC 217, TG 95, HDL 45, Ldl 153. Assessment & Plan (04/19/2024 10:44 AM EDT): 11/06/2023 ECHO wnl. Rpt lipid elevated: TC 234, LDL 170, TG 105, HDL 43 Repeat labs today with f/u with Cardiology on Monday Oral allergy syndrome 07/01/2021 Overview (04/11/2023): Gets itchy after eating peaches and plums and cherries. 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 Add Flonase. 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 Bps great off amlodipine. RTC 6 mo w/ fasting lipids, hgbA1C, Vit D Assessment & Plan (04/22/2025 2:15 PM EDT): Followed by Cardiology (Dr Calhoun) for HTN and elevated lipids. Lost weight with improved diet and regular exercise. Last seen by Dr Calhoun 07/24/2024 with follow up scheduled for 07/29. Has been off amlodipine for a month. Last fasting lipid panel on 01/16/2025 TC 217, TG 95, HDL 45, Ldl 153. Assessment & Plan (04/19/2024 10:25 AM EDT): [...] weight and eat better. Pt has seen screen room operator Will check labs to look for Type [...] Encounters Date Type Department Care Team Description 07/01/2025 Telephone [facility] [place] [address] [place] [address] Karlene Martini LPN Difficulty Urinating from Last 3 Months Immunizations Immunization Administration [...] / ADHD Brother Guru Asthma Father Jovani Cutler Hypertension Father Jovani Cutler Diabetes Maternal Grandmother Thyroid disease Maternal Grandmother Diabetes Mother Nelda Camargo Relation Name Status Comments Brother Guru Alive Brother: ADD/AD HD Father Jovani Cutler Alive Father: Asthma, High BP Maternal Grandfather Alive Materna l grandfather: Alive and well Maternal Grandmother Materna l grandmother: Diabetes mellitus Mother Nelda Camargo Alive Mother: Alive a nd well Paternal [...] there wasn't enough money for food? No 04/20/2025 Stable Housing Answer Date Recorded Are you worried that in the next 2 months you may not have stable housing? No 04/20/2025 Transportation Concerns Answer Date Rec orded In the last 12 months, have you or your family ever had to go without healthcare because you didn't have a way to get there? No 04/20/2025 Hazards in Home Answer Date Recorded Think about the place you li ve. Do you have problems with any of the following? Pests (mice or roaches), mold, no/not working smoke detectors, water leaks, no window guards. No 2024 Financing Utilities Answer Date Recorde d In the last 12 months, has t he electric, gas, oil, or water company threatened to shut off your services in your home? No 04/20/2025 Safety at Home Answer Date Recorded Are you or your family worried about feeling saf e in your home? No 04/20/2025 Outside Support Answer Date Recorded Do you feel that you need mo re support from other people or programs to help you care for yourself or your family? No 04/20/2025 Understanding Health Concerns Answer Da te Recorded Do you need help understandi ng your or your child's healthcare needs (diagnosis, medications, plan, etc.)? No 04/20/2025 Financing Health Concerns Answer Date R ecorded In the last 12 months, was t here a time when your child needed to see a doctor or get medications or supplies but could not because of cost? No 04/20/2025 Missing School or Work Answer Date Juan Diego rded Did you or your child miss s chool or work because of a health problem that could have been avoided? No 04/20/2025 Child Education Answer Date Recorded Do you have concerns about y our/your child's learning or behavior in school, preschool, or daycare? No 04/20/2025 Comments No Sex and Gender Information Value Date Recorded Sex Assigned at Female 06/30/2020 1:52 PM EDT Legal Sex Female 5:13 PM EDT Gender Identity Female 06/30/2020 1:52 PM EDT Sexual Orientation Bisexual 04/19/2024 10 :40 AM EDT Last Filed Vital Signs Vital Sign Reading Time Taken Comments Blood Pressure 121/80 04/22/2025 1:43 PM EDT Pulse 62 04/22/2025 1:43 PM EDT Temperature 36.1 C (97 F) 04/22/2025 1:43 PM EDT Respiratory Rate - - Oxygen Saturation 97% 02/23/2016 12:00 AM EDT Inhaled Oxygen Concentration - - Weight 122 kg (269 lb 8 oz) 04/22/2025 1:43 PM E DT Height 165.1 cm (5' 5 ) 04/22/2025 1:43 PM EDT Body Mass Index 44.85 04/22/2025 1:43 PM EDT Plan of Treatment Health Maintenance Due Date Last Done Comments Influenza Vaccines (#1) 2025 10/03/20, 09/23/2021, 09/06/2020, Additional history exists COVID-19 Vaccine (4 - 2024-2 6 season) 2025 10/05/2022, 04/16/2021, 03/26/2021 DTaP,Tdap,and Td Vaccines (7 - Td or [...] 017 Men B Vaccine Completed 07/11/2023, 10/27/2022 Chlamydia and Gonorrhea Screening Completed 04/22/2025, 04/19/2024, 10/27/2022, Additional history exists Procedures * Due to [place] state law, this organization might not be sharing sensitive test results. Procedure Name Priority Date/Time Associated Diagnosis Comments CHLAMYDIA AND GONORRHEA, AMPLIFIED Routine 04/22/2025 2:17 PM EDT Special screening examination for chlamydial disease from Last 3 Months or Most Recently Relevant to Health Maintenance Results * Due to [facility] law, this organization might not be sharing sensitive test results. * Chlamydia and Gonorrhoea, Amplified (04/22/2025 2:17 PM EDT) C trach [facility] Negative Negative [facility] N gonorrhoeae [facility] Negative Negative [facility] Urine (Urine) 04/22/2025 2:1 7 PM EDT 04/22/2025 Comment:UR Narrative [facility] - 04/23/2025 4:05 PM EDT Performed at: 01 - [facility] [place], [address], [place], [place] [id number] Natural Gas Technician: Armen Marrero MD, Phone: [phone] us Anita Rodriguez MD LAB MICROBIOLOGY - GENERAL ORD ERABLES Final Result Performing Organization Address City/State/[facility] Co de Phone Number [facility] [address] [place] [address] from Last 3 Months or Most Recently Relevant to Health Maintenance Insurance [facility] NON PCC [facility] Care Teams Agricultural Research Technologist Relationship Specialty Start Date End Date Anita Rodriguez MD [address] [place] [id number] PCP - General Pediatrics 09/27/22
--- OUTSIDE RECORDS SUMMARY | 2025-09-16 11:19 | XMS_ITS | Encounter Summary ---
Author Organization [facility] Address [address] [place] [address] Phone Care Team Providers Care Shot Polisher Name Role Phone Anita Rodriguez MD Primary Care Provider [phone] Encounter Details Date Type Department Care Team ([facility] st Contact Info) Description 08/18/2014 Documentation [facility] [place] [address] [place], [place] [id number] Family Medicine, Physician [address] [place], [place] [address]121 Social History Tobacco Use Types Packs/Day Years [...] on filedocumented in this encounter Care Teams Shot Polisher Relationship Specialty Start Date End Date Aniat Rodriguez MD [address] [place] [phone] PCP - General Pediatrics 09/27/22 documented as of this encounter
--- OUTSIDE RECORDS SUMMARY | 2025-09-16 11:19 | XMS_ITS | Encounter Summary ---
Author Organization [facility] Address [address] [place] [address] Phone Care Team Providers Care Lithographic Artist Name Role Phone Anita Rodriguez MD Primary Care Provider [phone] Encounter Details Date Type Department Care Team ([facility] st Contact Info) Description 08/14/2012 Documentation [facility] [place] Family Medicine [address] [place], [place] [phone] Family Medicine, Physician [address] [place], [place] [phone] Social History Tobacco Use Types Packs/Day Years [...] on filedocumented in this encounter Care Teams Lithographic Artist Relationship Specialty Start Date End Date Anita Rodriguez MD [address] [place] [id number] PCP - General Pediatrics 09/27/22 documented as of this encounter
--- OUTSIDE RECORDS SUMMARY | 2025-09-16 11:19 | XMS_ITS | Encounter Summary ---
Author Organization [facility] Address [address] [place] [place] [phone] Phone Care Team Providers Care Scale Reclamation Tender Name Role Phone Anita Rodriguez MD Primary Care Provider [phone] Encounter Details Date Type Department Care Team ([facility] st Contact Info) Description 08/19/2014 Documentation [facility] [place] Family Medicine [address] [place], [place] [phone] Family Medicine, Physician [address] [place], [place] [address] Social History Tobacco Use Types Packs/Day Years [...] on filedocumented in this encounter Care Teams Scale Reclamation Tender Relationship Specialty Start Date End Date Anita Rodriguez MD [address] [place] [phone] PCP - General Pediatrics 09/27/22 documented as of this encounter
--- OUTSIDE RECORDS SUMMARY | 2025-09-16 11:19 | XMS_ITS | Encounter Summary ---
Author Organization [facility] Address [address] [place] [address] Phone Care Team Providers Care Pan Washer Name Role Phone Anita Rodriguez MD Primary Care Provider [phone] Encounter Details Date Type Department Care Team ([facility] st Contact Info) Description 09/19/2012 Documentation [facility] [place] [address] [place], [place] [phone] Family Medicine, Physician [address] [place], [place] [address] Social History Tobacco Use Types Packs/Day Years [...] on filedocumented in this encounter Care Teams Pan Washer Relationship Specialty Start Date End Date Anita Rodriguez MD [address] [place] [phone] PCP - General Pediatrics 09/27/22 documented as of this encounter
--- OUTSIDE RECORDS SUMMARY | 2025-09-16 11:19 | XMS_ITS | Encounter Summary ---
Author Organization [facility] Address [address] [place] [address] Phone Care Team Providers Care Lacquer Pin Press Operator Name Role Phone Anita Rodriguez MD Primary Care Provider [phone] Encounter Details Date Type Department Care Team ([facility] st Contact Info) Description 02/16/2017 Documentation [facility] [place] Family [place] [address] [place] [address] Family Medicine, Physician [address] [place], [place] [address] Social History Tobacco Use Types Packs/Day Years [...] on filedocumented in this encounter Care Teams Lacquer Pin Press Operator Relationship Specialty Start Date End Date Anita Rodriguez MD [address] [place] [address] PCP - General Pediatrics 09/27/22 documented as of this encounter
[2025-10-03 15:58] LABS: Plasma Renin Activity 4.59 ng/mL/h (0.25-5.82)
== END 2025-09-16 08:25 | disposition home or self-care (01) ==
LOC: HO.LAB 08:24
PROVIDERS: PCP Pediatrics Adolescent Medicine; Visit Provider Student in an Organized Health Care Education/Training Program
DX: I10 Essential (primary) hypertension (principal); E78.5 Hyperlipidemia, unspecified; Z76.89 Persons encountering health services in other specified circumstances
CPT/HCPCS: 36415; 80053; 80061; 82088; 82384; 84443; 85025

== ENCOUNTER → 2025-10-09 16:08 | Outpatient (BNVA) | payer OTHER, SELFPAY | PROVIDERS: PCP Pediatrics Adolescent Medicine | DX: I10 Essential (primary) hypertension (principal) | CPT/HCPCS: 99211 ==